=== PATIENT | female | born 1990 | race Caucasian/White ===

== ENCOUNTER → 2016-06-09 | Outpatient (CLI) | payer BC ==
[~2016-06-09] MED LIST: None per pt
[2016-06-09 13:31] LABS: HEMOGLOBIN 13.4 g/dL (11.7-16.4)
== END | disposition home or self-care (01) ==
LOC: STAR 12:21
PROVIDERS: ATTEND Obstetrics & Gynecology
DX: Z01.818 Encounter for other preprocedural examination (principal); Z30.2 Encounter for sterilization
CPT/HCPCS: 36415; 84702; 85025

== ENCOUNTER 2016-06-13 09:56 | Day surgery (SDC) | payer BC ==
[~2016-06-13] VITALS: Ht 160 cm; Wt 78.0 kg
[2016-06-13] MEDS ORDERED: LACTATED RINGERS 1,000 ML IV SCH (10:20)
[2016-06-13] MEDS ORDERED: LIDOCAINE 1%, 2ML ONE (10:23)
[2016-06-13 10:29] LABS: HCG UR OBC PASS
[2016-06-13] MEDS ORDERED: LIDOCAINE 1%, 2ML SQ PRN (10:30)
[2016-06-13] MEDS ORDERED: SILVER NITRATE STICK TP ONE (10:36)
[2016-06-13] MEDS ORDERED: BUPIVACAINE/PF-EPI 0.25% 1:200K ONE (10:36)
[2016-06-13] MEDS ORDERED: SCOPOLAMINE PATCH, 1.5MG PATCH.TD72 TD ONE ×2 (11:24→15:18)
[2016-06-13] MEDS ORDERED: MIDAZOLAM 1 MG/ML, 2ML ONE (11:45)
[2016-06-13] MEDS ORDERED: FENTANYL PF 250 MCG/5ML ONE (11:46)
[2016-06-13] MEDS ORDERED: ROCURONIUM 10 MG/ML ONE (11:57)
[2016-06-13] MEDS ORDERED: KETOROLAC 30 MG/1 ML ONE (11:57)
[2016-06-13] MEDS ORDERED: DEXAMETHASONE 4 MG/ML, 1ML ONE (11:57)
[2016-06-13] MEDS ORDERED: PROPOFOL 10 MG/ML, 20ML ONE (11:57)
[2016-06-13] MEDS ORDERED: SUCCINYLCHOLINE 20 MG/ML, 10ML ONE (11:57)
[2016-06-13] MEDS ORDERED: PROPOFOL 10 MG/ML, 50ML ONE (11:57)
[2016-06-13] MEDS ORDERED: LIDOCAINE 1%, 20ML ONE (11:57)
[2016-06-13] MEDS ORDERED: GLYCOPYRROLATE 0.2MG/1ML ONE (11:57)
[2016-06-13] MEDS ORDERED: CEFAZOLIN 1,000 MG ONE (11:57)
[2016-06-13] MEDS ORDERED: ONDANSETRON 2MG/ML, 2ML ONE (11:57)
[2016-06-13] MEDS ORDERED: NEOSTIGMINE 1 MG/ML, 10ML ONE (11:57)
[2016-06-13] MEDS ORDERED: FENTANYL PF 100 MCG/2ML IV PRN (12:00)
[2016-06-13] MEDS ORDERED: HYDROmorphone 1 MG/ML, 1ML IV PRN (12:00)
[2016-06-13] MEDS ORDERED: PROMETHAZINE 25 MG/ML, 1ML IV PRN (12:00)
[2016-06-13] MEDS ORDERED: MIDAZOLAM 1 MG/ML, 2ML IV PRN (12:00)
[2016-06-13] MEDS ORDERED: ONDANSETRON 2MG/ML, 2ML IVPush PRN (12:00)
[2016-06-13] MEDS ORDERED: MEPERIDINE/PF 25MG/0.5ML IVPush PRN (12:00)
[2016-06-13] MEDS ORDERED: OXYcodone 5 MG/5 ML ORAL.SOL UDC PO PRN (12:00)
[2016-06-13] MEDS ORDERED: ACETAMINOPHEN 325 MG TABLET PO PRN (12:00)
[2016-06-13] MEDS ORDERED: FENTANYL PF 100 MCG/2ML ONE (13:01)
[2016-06-13] MEDS ORDERED: ACETAMINOPHEN 650 MG/20.3 ML UDC ONE (13:01)
[2016-06-13] MEDS ORDERED: OXYcodone 5 MG/5 ML ORAL.SOL UDC ONE (13:02)
== END 2016-06-13 14:25 | disposition home or self-care (01) ==
LOC: OUT 09:56
PROVIDERS: ATTEND Obstetrics & Gynecology
DX: Z30.2 Encounter for sterilization (principal)
CPT/HCPCS: 58670; 81025; J0330; J0690; J1100; J1885; J2250; J2405; J2704; J2710; J3010; J3490; J7120; S2900

== ENCOUNTER 2016-06-17 16:27 | Emergency (ER) | payer BC ==
[~2016-06-17] VITALS: Ht 160 cm; Wt 78.9 kg
[2016-06-17 17:45] LABS: BLOOD UREA NITROGEN 11 mg/dL (7-18)
[2016-06-17 18:57] VITALS: BP 129/87
== END 2016-06-17 18:59 | disposition home or self-care (01) ==
LOC: ED 17:46
DX: N93.8 Other specified abnormal uterine and vaginal bleeding (principal)
CPT/HCPCS: 36415; 76830; 80048; 82040; 84703; 85025; 99285